=== PATIENT | male | born 1965 | race Caucasian/White ===

== ENCOUNTER 2016-05-30 12:22 | Outpatient (CLI) | payer BC ==
--- NOTE | 2016-05-30 15:21 | RAD ---
LEFT RIBS: 05/30/16 Four views obtained. HISTORY: Left rib pain. FINDINGS: Left ribs appear intact. There is no evidence of fracture. No rib lesion identified. IMPRESSION: Unremarkable left ribs. POS: [facility]
== END 2016-05-30 12:23 | disposition home or self-care (01) ==
LOC: NAV RAD 12:22
PROVIDERS: ATTEND Internal Medicine
DX: G58.8 Other specified mononeuropathies (principal)